=== PATIENT | female | born 2000 | race Caucasian/White ===

== ENCOUNTER 2025-01-20 21:11 | Emergency (ER) | payer OTHER, SELFPAY ==
[2025-01-20 21:24] VITALS: BP 183/100
[2025-01-20] MEDS: DUONEB 3 ML INH (21:41)
[2025-01-21 00:05] VITALS: BP 131/89
[2025-01-21 00:55] LABS: Hematocrit 43.3 % (37.0-47.0); Hemoglobin 14.6 g/dL (12.0-16.0); Mean Corp Hgb Conc. 33.7 g/dL (33.0-37.0); Mean Corpuscular Volume 88.0 fL (81.0-99.0); Nucleated Red Blood Cells % 0 %; Platelet Count 308 10^3/uL (130-400); Red Cell Dist. Width 12.5 % (11.5-14.5)
[2025-01-21 00:56] LABS: ALT (SGPT) 22 U/L (0-35); AST (SGOT) 25 U/L (14-36); Albumin 5.1 g/dl (3.5-5.0); Alkaline Phosphatase 54 U/L (38-126); Blood Urea Nitrogen 12 mg/dl (7-17); Calcium 10.0 mg/dl (8.4-10.2); Carbon Dioxide 26 mmol/L (22-30); Chloride 108 mmol/L (98-107); Glucose 104 mg/dl (70-99); Potassium 4.2 mmol/L (3.5-5.1); Sodium 142 mmol/L (135-145); Total Protein 8.1 g/dl (6.3-8.2); eGFR > 60.00
[2025-01-21 01:10] VITALS: BP 118/82
[2025-01-21 01:11] VITALS: BMI 34.9
--- NOTE | 2025-01-21 01:45 | ED.GENMED ---
History of Present Illness
General
Chief Complaint: Breathing Problem
Source: patient and family (Mother at bedside)
Exam Limitations: none
Time Seen by Provider: 01/21/25 01:08
Nursing documentation reviewed up to this point in time: agreed with
History of Present Illness
History of Present Illness:
Note:
CHIEF COMPLAINT(S)
Shortness of breath, chest pressure, and anxiety.
HISTORY OF PRESENT ILLNESS
The patient is a 24-year-old female who reports experiencing episodes of chest pressure and difficulty breathing for the past week. She describes waking up at night feeling as though she couldnt catch her breath. She mentions a similar episode in
October where she was evaluated at [facility] and was diagnosed with anxiety after negative D-dimer and normal chest X-ray results. The patient experiences periodic episodes where she feels pressure and stabbing pains in her chest, sometimes lasting
up to 30 minutes, making it difficult for her to breathe deeply. She also reports experiencing palpitations and tingling sensations in her extremities, which she attributes to anxiety attacks. The patient has no history of asthma or lung disease and
mentions her breathing difficulties seem to be related to anxiety, though she is typically not an anxious person.
Most recent menstrual period 2 weeks ago. She states that menstrual period was quite heavy, lasting approximately 1 week. She denies risk of .
She was concern for possible anemia.
She takes no medicines on a daily basis.
Lifelong non-smoker. She denies drug use.
No recent travel. No leg pain or swelling.
She is actively losing weight through diet management as well as exercise. She denies shortness of breath nor chest pain with exercise.
She admits that initially presenting to the ED she was quite anxious, short of breath, hyperventilating with carpopedal spasm. Triage nurse helped her to calm down and after doing so then was given a nebulizer treatment with marked improvement in
her symptoms.
CHRONIC MEDICAL CONDITIONS SIGNIFICANTLY AFFECTING CARE
- Anxiety
- PCOS with irregular menstrual cycles
SOCIAL DETERMINANTS AFFECTING HEALTH
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
REVIEW OF SYSTEMS
- Intermittent sneezing and itchy nose over the past few days.
- Respiratory: Shortness of breath, pressure in the chest, episodes of hyperventilation.
- Cardiovascular: Chest pressure and pain, occasional palpitations.
- Gastrointestinal: Frequent nausea.
- Neurological: Reports tingling in extremities during anxiety episodes.
- Musculoskeletal: Calf tightness and occasional swelling. Currently asymptomatic.
- Psychiatric: Experiences anxiety and panic attacks, especially in relation to breathing difficulties.
PHYSICAL EXAM
General: Alert, no acute distress. 24-year-old female appears her stated age, bright and alert, pleasant, appears mildly anxious but easily communicative. Intermittently taking exaggerated deep breaths. No cough appreciated. Able to speak in
full sentences.
Skin: Warm, dry.
Head: Normocephalic, atraumatic.
Neck: Supple, trachea midline.
Eyes, Ears, Nose, Mouth, and Throat: Oral mucosa moist.
Cardiovascular: Normal peripheral perfusion, No edema.
Respiratory: Intermittently taking exaggerated deep breaths otherwise respirations are non-labored, clear on auscultation.
Gastrointestinal: Abdomen nondistended.
Back: Normal range of motion, normal alignment.
Musculoskeletal: Normal range of motion, normal strength.
Neurological: Alert and oriented to person, place, time, and situation, No focal neurological deficit observed.
Psychiatric: Cooperative, appropriate mood and affect.
PLAN
- Will check D-dimer test to rule out any potential thromboembolism despite low risk factors.
- Conduct cardiac enzyme tests to evaluate any cardiac causes for symptoms.
- Perform thyroid function tests to assess for hyperthyroidism or hypothyroidism contributing to symptoms.
- Provide reassurance regarding the nature of hyperventilation and anxiety, considering past effective response to Albuterol inhaler to manage breathing difficulties.
- The possibility of prescribing a mild anxiolytic was discussed to manage acute anxiety episodes.
DIFFERENTIAL DIAGNOSIS
The Differential Diagnosis includes, in no particular order and is not limited to:
1. Anxiety disorder
2. Panic attack
3. Hyperventilation syndrome
4. Hyperthyroidism
5. Pulmonary embolism
6. Asthma
7. Cardiac arrhythmia
8. Costochondritis
9. Anemia
10. Pleuritic chest pain
Past History
Past History
ED Past Medical History: Other (PCOS)
ED Past Surgical History: None
Social History
Tobacco: Non-smoker
Alcohol: None
Drug: None
Personal: Single
Living: with family
Employment: Employed
Family History
Family History: Other (Noncontributory)
Phy Exam
Physical Exam
Physical Exam:
As above
Scores
Heart Failure Risk
Heart Failure Risk Score: Not Applicable
Course
Orders/Labs/Results
Orders:
Orders
01/20/25 21:32
CR Chest - 2 Views Urgent
Comment:
Reason For Exam: SOB
01/20/25 21:33
CMP [Comprehensive Metabolic Panel] Urgent
Complete Blood Count/With Diff Urgent
01/20/25 21:35
Ipratropium/Albuterol Sulfate [Duoneb] 3 ml INH R NOW ONE
01/21/25 00:07
EKG [Electrocardiogram (*1)] Urgent
Reason for Study: Shortness of Breath
Other Reason for Exam: feeling of sob, pain under rib area radiating to her back
01/21/25 00:08
EKG- Treatment ONCE
01/21/25 00:21
HCG, Serum Qualitative Screen Urgent
TSH Reflex To Free T4 Urgent
Comment: ADD ON
01/21/25 01:27
Add On- LAB Urgent
Tests Added?: qual serum HCG; THS w reflex to free T-4
01/21/25 01:28
Lorazepam [Ativan] 0.5 mg PO NOW STA
01/21/25 01:59
D-Dimer Urgent
Troponin I Urgent
Abnormal Lab Results
01/21/25
00:21
WBC 13.0 H 10^3/uL
(4.8-10.8)
MPV 11.1 H fL
(7.4-10.4)
Absolute Neuts (auto) 9.9 H 10^3/uL
(1.4-6.5)
Absolute Monos (auto) 1.2 H 10^3/uL
(0.1-0.6)
Neutrophils % 76.1 H %
(42.2-75.2)
Lymphocytes % 13.6 L %
(20.5-51.1)
Chloride 108 H mmol/L
(98-107)
Glucose 104 H mg/dl
(70-99)
Albumin 5.1 H g/dl
(3.5-5.0)
01/21/25 00:21
01/21/25 00:21
Vital Signs
Initial and Last Documented VS:
Initial Vital Signs
Temp Pulse Resp BP Pulse Ox
98.3 F 112 26 183/100 99
01/20/25 21:24 01/20/25 21:24 01/20/25 21:24 01/20/25 21:24 01/20/25 21:24
Last Documented Vital Signs
Temp Pulse Resp BP Pulse Ox
98.3 F 81 17 124/73 98
01/20/25 21:24 01/21/25 03:30 01/21/25 03:30 01/21/25 03:00 01/21/25 03:30
*Radiology
Radiology exam reviewed: radiology read reviewed (Chest x-ray is unremarkable.)
*Pulse Oximetry
SaO2: 100
Nasal Cannula flow liters per minute: 99
Oxygen Mode of Delivery: Room air
Patient hypoxic: no
*EKG
Interpreted by ED Provider?: Yes
Comparison EKG: no comparison EKG present
Rate: tachycardiac
Rhythm: sinus and sinus arrhythmia
[place]: normal axis
Interval: normal interval
QRS Pattern: normal QRS
Ischemia: non-specific ST changes
*[employer]ice Interpretation
Rate: normal
Interpretation: normal
Rhythm: sinus
*Critical Care Note
Total Time (30-74mins, 75-104mins- exclusive of procedures): Not Applicable
Update Note
Update Note:
Patient remains comfortable. Is noted to have brief intermittent deep inspirations while chatting with her. These episodes of deep inspirations resolved with patient distraction.
She declined dose of Ativan.
Labs are unremarkable including normal D-dimer, normal troponin, normal TSH, negative hCG.
History and exam consistent with intermittent hyperventilation syndrome and I suspect related to underlying anxiety, worry.
Other consideration is mild intermittent asthma however less likely but also a consideration.
Will prescribe albuterol inhaler for as needed shortness of breath. She seemed to have some improvement after nebulizer treatment.
Patient currently does not have a PCP, will refer to our [facility] for follow-up.
ED Attending Note
-
Portions of this chart may have been created with voice recognition software.� Occasional wrong word or��sound alike� substitutions may have occurred due to the inherent limitations of voice recognition software.
Discharge Plan
Departure
Patient Disposition: Home (Routine Discharge)
Date of Disposition: 01/21/25
Time of Disposition: 03:33
Patient with high blood pressure during this ER visit?: No
Condition: Good
Discharge Problem:
Hyperventilation syndrome
Instructions: Hyperventilation
Prescriptions:
New
albuterol sulfate 90 mcg/actuation aerosol powdr breath activated
2 inh inhalation QIDPRN PRN (Reason: shortness of breath or wheezing) Qty: 1 0RF
Referrals:
[facility] [Outside] - Call in 1-3 days for appt
Interventions
Interventions:
*General Assessment Last Done: 01/20/25 21:24
*Neglect/Abuse Screening Last Done: 01/21/25 01:11
*ED- Fall Risk Assessment Last Done: 01/21/25 01:11
*ED COVID-19 Vaccine History Last Done: 01/21/25 01:11
*Nursing Disposition Last Done: 01/21/25 03:40
ED- Cardiac Assessment Last Done: 01/21/25 01:15
ED- Pulmonary Assessment Last Done: 01/21/25 01:15
Discharge Date and Time
Print Language: [id number]
[2025-01-21 01:57] LABS: HCG, Serum Qualitative Screen Negative
[2025-01-21 02:00] VITALS: BP 124/84
[2025-01-21 02:41] LABS: Troponin I < 0.012 ng/ml
[2025-01-21 03:00] VITALS: BP 124/73
[2025-01-21 03:02] LABS: D-Dimer < 0.27 ug/mlFEU (0.00-0.50)
== END 2025-01-21 03:40 | disposition home or self-care (01) ==
LOC: EMR 21:11
PROVIDERS: Student in an Organized Health Care Education/Training Program; EMERGENCY PHYSICIAN Emergency Medicine
DX: R06.4 Hyperventilation (principal); R07.89 Other chest pain; F41.9 Anxiety disorder, unspecified; E28.2 Polycystic ovarian syndrome
CPT/HCPCS: 94640; 99285; 71046; 80053; 84443; 84484; 84703; 85025; 85379; 93005

== ENCOUNTER → 2025-06-25 10:30 | Outpatient (REF) | payer OTHER, SELFPAY | LOC: HWRAD 10:30 | DX: M54.12 Radiculopathy, cervical region (principal) | CPT/HCPCS: 72050 ==